=== PATIENT | female | born 1995 | race Caucasian/White ===

== ENCOUNTER 2016-10-01 16:12 | Emergency (ER) | payer OTHER ==
[~2016-10-01] VITALS: Ht 170.2 cm; Wt 74.0 kg
[~2016-10-01 16:12] MED LIST: DEPO-PROVERA
[2016-10-01 16:31] LABS: HEMATOCRIT 36.5 % (36.0-46.0); MCH 26.2 PG (29.0-34.0); MCV 84.5 FL (83-99); PLATELET COUNT 344 K/uL (156-360); RBC DIS.WIDTH-CV 14.6 % (11.8-14.6); RBC DIS.WIDTH-SD 45.3 % (39-53); RED BLOOD COUNT 4.32 M/uL (3.80-5.20); WHITE BLOOD COUNT 6.8 K/uL (4.1-10.2)
[2016-10-01 16:52] LABS: CHLORIDE 105 mEq/L (99-109); POTASSIUM 4.3 mEq/L (3.7-5.4); SODIUM 139 mEq/L (136-147)
[2016-10-01 16:54] LABS: GLUCOSE 95 mg/dL (70-99)
[2016-10-01 16:55] LABS: ANION GAP 10 MEQ/L (2-14)
[2016-10-01 16:56] LABS: TOTAL BILIRUBIN 0.3 mg/dL (0.0-1.0)
[2016-10-01 16:57] LABS: ALKALINE PHOSPHATASE 68 IU/L (3-129)
[2016-10-01 16:58] LABS: GFR ESTIMATE (CALCULATED) > 59 mL/min/
[2016-10-01 16:59] LABS: UREA NITROGEN (BUN) 13 mg/dL (9-23)
[2016-10-01 17:01] LABS: ADD MIUA? YES; BILIRUBIN NEGATIVE; BLOOD NEGATIVE; COLOR YELLOW ((YELLOW)); GLUCOSE (STRIP) NEGATIVE; KETONES NEGATIVE; LEUKOCYTES NEGATIVE; NITRITE NEGATIVE; PROTEIN (STRIP) NEGATIVE; UROBILINOGEN 0.2 MG/DL (0.2-1.0)
[2016-10-01 17:07] LABS: QUANTITATIVE HCG < 4.0 MIU/ML
[2016-10-01] MEDS ORDERED: MIRALAX255 GM PO (17:26)
[2016-10-01 17:27] LABS: EPITHELIAL CELLS RARE /HPF; MUCUS NONE SEEN /LPF; RED BLOOD CELLS 0-5 /HPF (0-5); WHITE BLOOD CELLS 0-5 /HPF (0-5)
[2016-10-01 17:28] LABS: AMORPHOUS URATES CRYSTALS 1+; BACTERIA 2+ /HPF; CASTS NONE SEEN /LPF; CRYSTALS PRESENT; UCUL ADDED? NO
[2016-10-01] MEDS ORDERED: KEFLEX500 MG PO (18:30)
[2016-10-01 19:08] VITALS: BP 117/61
[2016-10-03 13:25] LABS: CHLAMYDIA TRACHOMATIS NEGATIVE; NEISSERIA GONORRHOEAE NEGATIVE
== END 2016-10-01 19:08 | disposition home or self-care (01) ==
LOC: EME 16:12
PROVIDERS: Physician Assistant
DX: K59.00 Constipation, unspecified (principal); R10.2 Pelvic and perineal pain; N39.0 Urinary tract infection, site not specified; N72 Inflammatory disease of cervix uteri
CPT/HCPCS: 74000; 80053; 81003; 84702; 85027; 87086; 87210; 87491; 87591; 99281; 99285; J0696; J1885

== ENCOUNTER 2018-01-03 08:27 | Emergency (ER) | payer BC ==
[~2018-01-03] VITALS: Ht 167.6 cm; Wt 63.2 kg
[~2018-01-03 08:27] MED LIST changes: +KEFLEX500 MG PO; +MIRALAX255 GM PO
[2018-01-03 08:42] LABS: HEMATOCRIT 36.7 % (36.0-46.0); HEMOGLOBIN 12.2 G/DL (11.9-15.5); MCH 28.3 PG (29.0-34.0); MCHC 33.2 G/DL (30.0-36.0); MCV 85.2 FL (83-99); PLATELET COUNT 309 K/uL (156-360); RBC DIS.WIDTH-CV 14.2 % (11.8-14.6); RBC DIS.WIDTH-SD 43.9 % (39-53); RED BLOOD COUNT 4.31 M/uL (3.80-5.20); WHITE BLOOD COUNT 5.4 K/uL (4.1-10.2)
[2018-01-03 08:50] LABS: ALBUMIN 4.6 g/dL (3.2-4.8); CHLORIDE 110 mEq/L (99-109); POTASSIUM 3.8 mEq/L (3.7-5.4); SODIUM 142 mEq/L (136-147)
[2018-01-03 08:52] LABS: GLUCOSE 108 mg/dL (70-99)
[2018-01-03 08:53] LABS: TOTAL PROTEIN 7.9 g/dL (6.4-8.3)
[2018-01-03 08:54] LABS: TOTAL BILIRUBIN 0.6 mg/dL (0.0-1.0)
[2018-01-03 08:56] LABS: ALKALINE PHOSPHATASE 58 IU/L (3-129); CREATININE 0.9 mg/dL (0.6-1.3); GFR ESTIMATE (CALCULATED) > 59 mL/min/
[2018-01-03 08:57] LABS: UREA NITROGEN (BUN) 10 mg/dL (9-23)
[2018-01-03 08:58] LABS: AST (GOT) 16 IU/L (2-34)
[2018-01-03 08:59] LABS: ALT (GPT) 12 IU/L (3-49)
[2018-01-03 09:05] LABS: QUANTITATIVE HCG < 4.0 MIU/ML
[2018-01-03 09:27] LABS: LIPASE 14 U/L (1.0-51.0)
[2018-01-03 09:31] LABS: APPEARANCE SL.HAZY ((CLEAR)); BILIRUBIN NEGATIVE; BLOOD NEGATIVE; COLOR YELLOW ((YELLOW)); GLUCOSE (STRIP) NEGATIVE; KETONES 20; LEUKOCYTES TRACE; NITRITE NEGATIVE; PROTEIN (STRIP) 100; SPECIFIC GRAVITY 1.028 (1.000-1.030); UROBILINOGEN 0.2 MG/DL (0.2-1.0)
[2018-01-03 09:38] LABS: BACTERIA 2+ /HPF; EPITHELIAL CELLS 1+ /HPF; MUCUS 3+ /LPF; UCUL ADDED? YES
[2018-01-03 12:45] LABS: C DIFF TOXIN NEGATIVE (NEGATIVE)
[2018-01-03] MEDS ORDERED: KEFLEX500 MG PO (13:00)
[2018-01-03] MEDS ORDERED: REGLAN10 MG PO (13:00)
[2018-01-03 13:32] VITALS: BP 112/85
== END 2018-01-03 13:39 | disposition home or self-care (01) ==
LOC: EME 08:27
PROVIDERS: Nurse Practitioner Family
DX: R10.12 Left upper quadrant pain (principal); R10.13 Epigastric pain; R11.2 Nausea with vomiting, unspecified; R19.7 Diarrhea, unspecified; N39.0 Urinary tract infection, site not specified
CPT/HCPCS: 80053; 81003; 83630; 83690; 84702; 85027; 87086; 87177; 87493; 87506; 99281; 99285; J2765; J7120